=== PATIENT | male | born 1985 | race Hispanic/Latino ===

== ENCOUNTER → 2022-09-27 | Outpatient (CLI) | payer OTHER | LOC: SLEEP 19:30 | PROVIDERS: ATTEND Internal Medicine Critical Care Medicine | DX: G47.33 Obstructive sleep apnea (adult) (pediatric) (principal); J30.9 Allergic rhinitis, unspecified; J18.9 Pneumonia, unspecified organism; R06.83 Snoring; K21.9 Gastro-esophageal reflux disease without esophagitis; E66.9 Obesity, unspecified; Z65.5 Exposure to disaster, war and other hostilities | CPT/HCPCS: 95810 ==